=== PATIENT | male | born 1995 ===

== ENCOUNTER 2019-10-21 22:02 | Emergency (ER) | payer OTHER ==
--- NOTE | 2019-10-22 01:18 | ED ---
HPI Febrile Illness - HPI Summary HPI Summary: This pt is a 24 Y/O M [facility] [place] by his brother with a CC of an intermittent fever that at worse was a - History of Current Complaint Chief Complaint: EDGeneral Time Seen by Provider: 10/22/19 00:22 Pain Intensity: 0 - Allergy/Home Medications Allergies/Adverse Reactions: Allergies Allergy/AdvReac Type Severity Reaction Status Date / Time No Known Allergies Allergy Verified 10/21/19 22:10 PMH/Surg Hx/FS Hx/Imm Hx Infectious Disease History: No Infectious Disease History: Denies: Traveled Outside the [place] in Last 30 Days Physical Exam Vital Signs On Initial Exam: Initial Vitals Temp Pulse Resp BP Pulse Ox 98.3 F 109 20 126/71 99 10/21/19 22:09 10/21/19 22:09 10/21/19 22:09 10/21/19 22:09 10/21/19 22:09 Diagnostics - Vital Signs Vital Signs Temp Pulse Resp BP Pulse Ox 10/21/19 22:09 98.3 F 109 20 126/71 99 - Laboratory Lab Statement: Any lab studies that have been ordered have been reviewed, and results considered in the medical decision making process. Discharge ED - Discharge Plan Referrals: No Primary Care Phys,NOPCP [Primary Care Provider] - - Attestation Statements Document Initiated by Naz: Yes
--- NOTE | 2019-10-22 01:25 | ED ---
Influenza-Like Illness - HPI Summary HPI Summary: This pt is a 24 Y/O M presenting to [facility] with a CC of a fever and cough for the last 4 days. He states that he has a headache, myalgia, SOB, and sore throat since the onset. He states that he moved here 2 months ago from [place] and works at [employer]. He does not have any direct contact with any known COVID exposure but states that he works in an extremely public setting. He denies any PMHx. States he has a FHx of dialysis. He denies any aggravating or alleviating factors. - History of Current Complaint Chief Complaint: EDGeneral Time Seen by Provider: 10/22/19 00:22 Hx Obtained From: Patient Onset/Duration: Sudden Onset Severity: Moderate Associated Signs & Symptoms: Fever, Myalgia, Cough, Sore Throat, Headache - Allergy/Home Medications Allergies/Adverse Reactions: Allergies Allergy/AdvReac Type Severity Reaction Status Date / Time No Known Allergies Allergy Verified 10/21/19 22:10 PMH/Surg Hx/FS Hx/Imm Hx Previously Healthy: Yes Endocrine/Hematology History: Denies: Hx Diabetes Cardiovascular History: Denies: Hx Hypertension GI History: Denies: Hx Hiatal Hernia - Cancer History Hx Chemotherapy: No Hx Radiation Therapy: No - Surgical History Surgical History: None - Immunization History Immunizations Up to Date: Yes Infectious Disease History: No Infectious Disease History: Denies: Traveled Outside the [place] in Last 30 Days - Family History Known Family History: Positive: Hypertension, Renal Disease - states mother is on dialysis - Social History Occupation: Employed Full-time Lives: With Family Alcohol Use: None Hx Substance Use: No Substance Use Type: Reports: None Hx Tobacco Use: No Smoking Status (MU): Never Smoked Tobacco Review of Systems Positive: Fever, Chills Positive: Shortness Of Breath, Cough Positive: Myalgia Positive: Headache All Other Systems Reviewed And Are Negative: Yes Physical Exam - Summary Physical Exam Summary: General: Well-developed, Well-nourished male who is mildly ill-appearing. No acute distress. HEENT: Normocephalic, Atraumatic. Eyes: Conjuctiva normal, PERRL. Ears: TMs within normal limits. Nares: (-) discharge, (-) erythema. Oropharynx: Clear, mucous membranes moist, (-) exudates. Neck: Soft, FROM, (-) lymphadenopathy, (-) thyromegaly, (-) JVD. Cardiovascular: Normal sinus rhythm, (-) murmur. Lungs: Transmitted upper airway noises (-) wheezes, (-) rales, (-) rhonchi. Abdomen: Soft, non-tender, non-distended, (-) organomegaly, normal bowel sounds. Back: (-) CVA tenderness Extremities: No edema. Skin: Warm, dry, (-) rash. Neuro: Alert and oriented x3, no focal deficits. Psychiatric: Mood normal, affect normal. Triage Information Reviewed: Yes Vital Signs On Initial Exam: Initial Vitals Temp Pulse Resp BP Pulse Ox 98.3 F 109 20 126/71 99 10/21/19 22:09 10/21/19 22:09 10/21/19 22:09 10/21/19 22:09 10/21/19 22:09 Vital Signs Reviewed: Yes Procedures - Sedation Patient Received Moderate/Deep Sedation with Procedure: No Diagnostics - Vital Signs Vital Signs Temp Pulse Resp BP Pulse Ox 10/21/19 22:09 98.3 F 109 20 126/71 99 - Laboratory Lab Statement: Any lab studies that have been ordered have been reviewed, and results considered in the medical decision making process. Flu Symptom Course/Dx - Course Course Of Treatment: 24-year-old male presents with acute illness. He states over the last 4 days he has been sick with fever cough bodyaches. Shortness of breath. He states it was worse the first 2 days and slightly better the last 2. He does work at [employer] and is concerned about his possible exposure. Has not traveled in the last month. Has not been around anyone that he knows of that has traveled or been in contact with anyone with [place] virus. On physical exam he is mildly ill-appearing. Lungs have transmitted upper airway noises. No fever upon arrival. Workup demonstrates flu negative. Patient is not indicated for her cold blood testing at this time. He is discharged home. Viral syndrome. Follow up with PCP. Follow-up sooner for any worsening symptoms. - Diagnoses Provider Diagnoses: Viral syndrome Discharge ED - Sign-Out/Discharge Documenting (check all that apply): Patient Departure - discharge - Discharge Plan Condition: Good Disposition: HOME Patient Education Materials: Viral Syndrome (ED) Referrals: Care [facility] [Outside] - 2 Days Additional Instructions: PLEASE RETURN TO THE EMERGENCY DEPARTMENT FOR ANY NEW OR WORSENING SYMPTOMS. FOLLOW UP WITH THE [facility] IN 1-3 DAYS TO ESTABLISH A PRIMARY CARE PHYSICIAN. - Billing Disposition and Condition Condition: GOOD Disposition: Home - Attestation Statements Document Initiated by Scribe: Yes Documenting Scribe: Tuan Hare Provider For Whom Scribe is Documenting (Include Credential): Latanya Jimenez MD Scribe Attestation: Tuan Leslie, scribed for Latanya Jimenez MD on 10/22/19 at 1940. Scribe Documentation Reviewed: Yes Provider Attestation: The documentation as recorded by the Tuan leonard accurately reflects the service I personally performed and the decisions made by , Latanya Jimenez MD Status of Scribe Document: Viewed
[2019-10-22 01:52] LABS: Influenza A Molecular Negative (Negative); Influenza B Molecular Negative (Negative)
== END 2019-10-22 02:35 | disposition home or self-care (01) ==
LOC: ED 22:02
DX: B34.9 Viral infection, unspecified (principal)
CPT/HCPCS: 99282